=== PATIENT | male | born 1955 | race Hispanic/Latino ===

== ENCOUNTER → 2023-03-21 | Outpatient (CLI) | payer OTHER | END | disposition home or self-care (01) | LOC: RAH 13:41 | PROVIDERS: ATTEND Physical Medicine & Rehabilitation | DX: M48.02 Spinal stenosis, cervical region (principal) | CPT/HCPCS: 72141 ==

== ENCOUNTER → 2023-05-03 | Outpatient (CLI) | payer OTHER ==
[~2023-05-03] MED LIST: BACL5TAB PO; GABA-534 PO; LEVO150T11 PO
== END | disposition home or self-care (01) ==
LOC: RAH 08:18
PROVIDERS: ATTEND Neurological Surgery
DX: M43.22 Fusion of spine, cervical region (principal)
CPT/HCPCS: 72040

== ENCOUNTER → 2023-05-15 | Outpatient (CLI) | payer OTHER | END | disposition home or self-care (01) | LOC: RAH 15:47 | PROVIDERS: ATTEND Physical Medicine & Rehabilitation | DX: M47.817 Spondylosis without myelopathy or radiculopathy, lumbosacral region (principal); M51.36 Other intervertebral disc degeneration, lumbar region; M48.061 Spinal stenosis, lumbar region without neurogenic claudication | CPT/HCPCS: 72100 ==

== ENCOUNTER → 2023-12-18 | Outpatient (CLI) | payer OTHER | END | disposition home or self-care (01) | LOC: RAH 12:43 | PROVIDERS: ATTEND Physical Medicine & Rehabilitation | DX: M48.02 Spinal stenosis, cervical region (principal) | CPT/HCPCS: 72141 ==

== ENCOUNTER → 2024-01-21 | Outpatient (CLI) | payer OTHER ==
[2024-01-21 12:31] LABS: CHOLESTEROL 154 mg/dL (<200); HDL CHOLESTEROL 41 mg/dL (29-71); LDL DIRECT 92 mg/dL (0-99); TRIGLYCERIDES 173 mg/dL (30-200)
== END | disposition home or self-care (01) ==
LOC: LAB 08:03
PROVIDERS: ATTEND Internal Medicine Cardiovascular Disease
DX: E03.9 Hypothyroidism, unspecified (principal)
CPT/HCPCS: 36415; 80061

== ENCOUNTER → 2024-03-31 | Outpatient (CLI) | payer OTHER ==
[2024-03-31 12:20] LABS: CHOLESTEROL 158 mg/dL (<200); HDL CHOLESTEROL 38 mg/dL (29-71); LDL DIRECT 90 mg/dL (0-99); TRIGLYCERIDES 220 mg/dL (30-200)
== END | disposition home or self-care (01) ==
LOC: LAB 09:15
PROVIDERS: ATTEND Internal Medicine Cardiovascular Disease
DX: E03.9 Hypothyroidism, unspecified (principal); Z82.49 Family history of ischemic heart disease and other diseases of the circulatory system
CPT/HCPCS: 36415; 80061

== ENCOUNTER → 2024-06-08 | Outpatient (CLI) | payer OTHER | END | disposition home or self-care (01) | LOC: RAH 10:58 | PROVIDERS: ATTEND Physical Medicine & Rehabilitation | DX: M25.561 Pain in right knee (principal); Z96.651 Presence of right artificial knee joint | CPT/HCPCS: 73562 ==

== ENCOUNTER → 2024-10-26 | Outpatient (CLI) | payer OTHER ==
--- NOTE | 2024-10-26 15:59 | HMCIMG ---
KNEE 3VWS LT REASON: Ataxic gait; LEFT KNEE PAIN TECHNIQUE: 3 views were obtained. FINDINGS: There is no evidence of fracture or dislocation. There is no joint effusion. The soft tissues appear unremarkable. There is no evidence of a radiopaque foreign body. IMPRESSION: No acute findings.
--- NOTE | 2024-10-26 15:59 | HMCIMG ---
KNEE 3VWS RT REASON: Ataxic gait; Presence of right artificial knee joint TECHNIQUE: 3 views were obtained. FINDINGS: There is no evidence of fracture or dislocation. There is no joint effusion. The soft tissues appear unremarkable. There is no evidence of a radiopaque foreign body. There is a total knee joint prosthesis in place, hardware appears unremarkable. IMPRESSION: No acute findings.
== END | disposition home or self-care (01) ==
LOC: RAH 14:27
PROVIDERS: ATTEND Physical Medicine & Rehabilitation
DX: M25.562 Pain in left knee (principal); R26.0 Ataxic gait; Z96.651 Presence of right artificial knee joint
CPT/HCPCS: 73562